=== PATIENT | male | born 1985 | race Asian ===

== ENCOUNTER 2016-08-26 00:08 | Emergency (ER) | payer SELFPAY ==
[~2016-08-26] VITALS: Ht 175.3 cm; Wt 73.9 kg
[2016-08-26 02:13] VITALS: BP 111/70
[2016-08-26 04:59] VITALS: BP 116/72
--- NOTE | 2016-08-26 05:28 | Emergency Room Report ---
History of Present Illness General Chief Complaint: Alcohol Intoxication Source: Patient, EMS Present Illness HPI Patient is a 30-year-old male brought in by EMS after probable alcohol intoxication. Patient was noted to be walking down the street with ataxic gait. The patient reportedly had been drinking Soju. History is limited by poor cooperation. Allergies: Coded Allergies: No Known Allergies (Unverified , 08/26/16) Patient History Past Medical History: see triage record Reviewed Nursing Documentation: PMH: Agreed, PSxH: Agreed Nursing Documentation-PMH Past Medical History: No Stated History Review of Systems All Other Systems: limited - by poor historian Physical Exam Vital Signs Date Time Temp Pulse Resp B/P Pulse Ox O2 Delivery O2 Flow Rate FiO2 08/26/16 00:11 98.1 110 18 130/80 100 Room Air General Appearance: well appearing, no apparent distress, alert, non-toxic Head: normocephalic, atraumatic ENT: hearing grossly normal, normal voice Neck: full range of motion, supple Respiratory: lungs clear, normal breath sounds, no respiratory distress, speaking full sentences Gastrointestinal: normal inspection, soft, no mass Musculoskeletal: no calf tenderness Neurologic: normal inspection, alert, oriented x3, office copy selector III-XII nml as tested, motor strength/tone normal, normal gait, other - ataxia Psychiatric: mood/affect normal Skin: no rash Medical Decision Making Diagnostic Impression: Primary Impression: Acute alcoholic intoxication ER Course Patient presented for alcohol intoxication.Patient was noted to have initially confused mental status. Patient had gradual improvement of neurologic status. The patient was noted be markedly agitated. Patient at several points punched the wall with his right hand. X-ray imaging of the right hand was ordered due to to some swelling. 3 views interpreted by me normal bony alignment no evident fx Patient was given Zyprexa for agitation At the time of discharge patient is awake alert oriented and able to ambulate without assistance. Patient was advised to stop drinking alcohol. And to followup with outpatient therapy for alcohol treatment.The patient is advised to follow up with primary care doctor in 1-2 days. Patient is advised to return if any worsening condition or if any changes in status that are concerning. Last Vital Signs Date Time Temp Pulse Resp B/P Pulse Ox O2 Delivery O2 Flow Rate FiO2 08/26/16 04:59 94 14 116/72 96 Room Air 08/26/16 00:11 98.1 Status: improved Disposition: HOME, SELF-CARE Condition: Stable Referrals: NOT CHOSEN IPA/,REFERRING (PCP) Jorge Nelson Aug 26, 2016 05:28
[2016-08-26 06:03] VITALS: BP 116/72
--- NOTE | 2016-08-26 09:35 | Diagnostic Imaging Report ---
Indication: PAIN Technique: XRAY HAND MIN 3V RIGHT Comparison: None. Findings: The bones are intact. There is no fracture or bone destruction. The visualized joints are normal. The soft tissues are unremarkable. Impression: Negative examination.
== END 2016-08-26 06:05 | disposition home or self-care (01) ==
LOC: EDBD 00:08 → EMR 01:46
DX: F10.129 Alcohol abuse with intoxication, unspecified (principal); R26.0 Ataxic gait
CPT/HCPCS: 99283